=== PATIENT | female | born 1960 | race Caucasian/White ===

== ENCOUNTER 2024-01-18 18:27 | Emergency (ER) | payer MEDICARE, OTHER, SELFPAY ==
[2024-01-18 18:29] VITALS: BP 175/92
[2024-01-18 18:48] LABS: % Basophils 0.6 % (0-2); % Eosinophils 0.8 % (0-6); % Immature Granulocytes 0.3 % (0-0.5); % Lymphocytes 38.2 % (20.5-51.1); % Monocytes 10.3 % (1.7-9.3); % Neutrophils 49.8 % (42.2-75.2); Absolute Basophils 0.1 10^3/uL (0-0.2); Absolute Eosinophils 0.1 10^3/uL (0-0.7); Absolute Monocytes 0.8 10^3/uL (0.1-0.6); Absolute Neutrophils 3.9 10^3/uL (1.4-6.5); Hematocrit 39.9 % (37.0-47.0); Hemoglobin 13.8 g/dL (12.0-16.0); Mean Corp Hgb Conc. 34.6 g/dL (33.0-37.0); Mean Corpuscular Hgb 30.9 pg (27.0-31.0); Mean Corpuscular Volume 89.5 fL (81.0-99.0); Mean Platelet Volume 10.1 fL (7.4-10.4); Nucleated Red Blood Cells % 0 %; Platelet Count 269 10^3/uL (130-400); Red Blood Cell Count 4.46 10^6/uL (4.20-5.40); Red Cell Dist. Width 12.7 % (11.5-14.5); White Blood Cell Count 7.9 10^3/uL (4.8-10.8)
[2024-01-18 19:06] LABS: ALT (SGPT) 23 U/L (0-35); AST (SGOT) 24 U/L (14-36); Albumin 4.6 g/dl (3.5-5.0); Alkaline Phosphatase 98 U/L (38-126); Blood Urea Nitrogen 20 mg/dl (7-17); Calcium 9.7 mg/dl (8.4-10.2); Carbon Dioxide 25 mmol/L (22-30); Chloride 99 mmol/L (98-107); Glucose 108 mg/dl (70-99); Potassium 4.1 mmol/L (3.5-5.1); Sodium 137 mmol/L (135-145); Total Bilirubin 0.9 mg/dl (0.2-1.3); Total Protein 7.4 g/dl (6.3-8.2); eGFR > 60.00
[2024-01-18 19:09] LABS: Troponin I < 0.012 ng/ml
[2024-01-18 20:44] VITALS: BP 143/74
[2024-01-18 21:59] VITALS: BP 146/75
[2024-01-18 22:00] VITALS: BP 138/53
--- NOTE | 2024-01-18 22:28 | ED.GENMED ---
History of Present Illness
General
Chief Complaint: Chest Pain
Source: patient
Exam Limitations: none
Time Seen by Provider: 01/18/24 21:40
History of Present Illness
History of Present Illness:
This is a 63 year old female that comes in with c/o chest pain. States that she has chest pain yesterday. Then today she had chest pain again that is on and off. States that her right arm felt like it was falling asleep. States that she went to the
PCP on for a routine check up. States that she is to have a stress test and she has this scheduled for January 29. States that she got worried about this as she just started to really try and walk. States that she is walking about 2-[place] States that she does get upper chest tightness and SOB and she has to sit and rest. States that she tried to walk 5 block and she got the tightness and the SOB. Denies any fever, chills, chest pain at this time, SOB now, abd
pain, nausea, vomiting, diarrhea, headache dizziness, urinary burning.
Past History
Past History
ED Past Medical History: HTN and Other (Hemorrhoids)
ED Past Surgical History: and Other (Cataract)
Social History
Tobacco: Former smoker
Alcohol: Occasional
Personal:
Living: alone
Employment: Retired
Review of Systems
Review of Systems
All Other Systems: ROS reviewed and negative except as documented in HPI and ROS
Constitutional: Reports no symptoms; Denies fever or chills
EENT: Reports no symptoms
Respiratory: Reports trouble breathing; Denies cough
Cardiac: Reports chest pain
ABD/GI: Reports no symptoms; Denies abdominal pain, nausea, vomiting or diarrhea
: Reports no symptoms; Denies dysuria, frequency or urgency
Musculoskeletal: Reports no symptoms
Skin: Reports no symptoms
Neurological: Reports no symptoms; Denies dizzy or headache
Psychiatric: Reports no symptoms
Phy Exam
General Physical Exam
General Presentation: well appearing and no apparent distress
General age: appears stated age
General Skin: warm and dry
General Habitus: obese
General Mental: alert
General Hydration: appears well hydrated
ENT Exam
ENT Exam: TM's normal, pharynx normal and neck supple
Eye Exam
Eye Exam: EOMI
Cardiovascular Exam
Cardiovascular Exam: regular rate/rhythm, no edema and normal peripheral pulses
Pulmonary Exam
Pulmonary Exam: lungs clear, no respiratory distress, no rales, chest non tender, no crackles, no rhonchi, no wheezing and no cough
Gastrointestinal Exam
Gastrointestinal Exam: normal bowel sounds, non tender, soft, no organomegaly, no pulsatile mass and non distended
Musculoskeletal Exam
Musculoskeletal Exam: full ROM and no edema
Skin Exam
Skin Exam: normal color, warm/dry, no rash and no petechia
Psychiatric Exam
Psychiatric Exam: normal mood/affect
Scores
Heart Score for Chest Pain Patients
STEMI patient?: No
History: Slightly or Non-Suspicious
ECG: Normal
Age: >/= 65 years
Risk Factors: 1 or 2 Risk Factors
Troponin: </= Normal Limit
Heart Score for Chest Pain Patients: 3
Heart Score Risk: 2.5% MACE over next 6 weeks
Course
Orders/Labs/Results
Orders:
Orders
01/18/24 18:33
Electrocardiogram (*1) Urgent
Reason for Study: Chest Pain
EKG- Treatment ONCE
01/18/24 18:35
Complete Blood Count/With Diff Urgent
Comprehensive Metabolic Panel Urgent
Troponin I Urgent
01/18/24 22:27
Electrocardiogram (*1) Urgent
Reason for Study: Chest Pain
Other Reason for Exam: Repeat with Troponin
EKG- Treatment ONCE
CR Chest - 2 Views Urgent
Comment:
Reason For Exam: Chest pain
01/18/24 23:16
Troponin I Urgent
Abnormal Lab Results
01/18/24
18:35
Absolute Monos (auto) 0.8 H 10^3/uL
(0.1-0.6)
Monocytes % 10.3 H %
(1.7-9.3)
BUN 20 H mg/dl
(7-17)
Glucose 108 H mg/dl
(70-99)
01/18/24 18:35
01/18/24 18:35
Dehydration. Glucose nonfasting. Troponin <0.012
Second Troponin <0.012
Vital Signs
Initial and Last Documented VS:
Initial Vital Signs
Temp Pulse Resp BP Pulse Ox
98 F 101 20 175/92 98
01/18/24 18:29 01/18/24 18:29 01/18/24 18:29 01/18/24 18:29 01/18/24 18:29
Last Documented Vital Signs
Temp Pulse Resp BP Pulse Ox
98 F 77 19 125/53 95
01/18/24 18:29 01/18/24 23:15 01/18/24 23:15 01/18/24 22:45 01/18/24 23:15
MDM/Problems Addressed
Differential Diagnosis Includes:
Coronary syndrome. Angina,
MDM/Problems Addressed:
This is a 63 year old female that comes in with c/o chest pain that is on and off. States that this started yesterday and continued to day. States that today she had tingling in the right arm and was SOB.
Will check labs. Chest X-ray.
Repeat ECG: rate 69, NSR, NOrmal axis, Normal QRS. T wave inversion, III, aVF, V1, V3, V4, V5,
Into see patient. Explained that the second troponin is normal. Patient will be place on the cardiology hot line for further evaluation. Patient to return with increased chest pain or SOB.
Chronic conditions affecting care:
NA
Acute Exacerbation and/or Progression of Chronic Illness:
NA
*Radiology
Radiology exam reviewed: preliminary read by ED provider (Chest- Negative for active diseases. )
*Pulse Oximetry
Patient hypoxic: no
*EKG
Interpreted by ED Provider?: Yes
Heart Rate: 80
Rate: normal
Rhythm: sinus
Bluejacket: normal axis
Interval: normal interval
QRS Pattern: normal QRS
Ischemia: non-specific ST changes
*Critical Care Note
Total Time (30-74mins, 75-104mins- exclusive of procedures): Not Applicable
ED Attending Note
-
Portions of this chart may have been created with voice recognition software.� Occasional wrong word or��sound alike� substitutions may have occurred due to the inherent limitations of voice recognition software.
Discharge Plan
Departure
Patient Disposition: Home (Routine Discharge)
Date of Disposition: 01/19/24
Time of Disposition: 00:06
Patient with high blood pressure during this ER visit?: Yes
Condition: Good
Covid-19: Not Applicable
Discharge Problem:
Chest pain
Instructions: Chest Pain DCA Follow Up, BLOOD PRESSURE
Prescriptions:
No Action
quinapril [Accupril] 20 MG tablet
20 mg PO DAILY@1700
Quinapril/Hydrochlorothiazide
1 tab PO DAILY
Patient Comments:
20/12.5mg
Referrals:
Gin Davidson MD [Family Provider] - Call in 1-3 days for appt
Activity Restrictions/Additional Instructions:
As discussed, your blood work shows slight Dehydration. Your chest x-ray is negative for any acute disease. You have been place on the Cardiology hot line. This means that you will be called the next business day for a follow up appointment with the
Home Sales Consultant. IF YOU HAVE INCREASED OR CHANGING CHEST PAIN, SHORTNESS OF BREATH, OR YOU HAVE ANY OTHER CONCERNS PLEASE RETURN TO THE EMERGENCY ROOM.
Interventions
Interventions:
*Risk Screen - Suicide Last Done: 01/18/24 22:38
*General Assessment Last Done: 01/18/24 22:38
*Neglect/Abuse Screening Last Done: 01/18/24 22:38
ED- Fall Risk Assessment Last Done: 01/18/24 22:38
*ED COVID-19 Vaccine History Last Done: 01/18/24 22:38
ED- Cardiac Assessment Last Done: 01/18/24 22:38
Discharge Date and Time
Print Language: OCCITAN
[2024-01-18 22:38] VITALS: BMI 40.8
[2024-01-18 22:45] VITALS: BP 125/53
[2024-01-18 23:30] VITALS: BP 119/51
[2024-01-18 23:51] LABS: Troponin I < 0.012 ng/ml
== END 2024-01-19 00:46 | disposition home or self-care (01) ==
LOC: EMR 18:27
PROVIDERS: Clinical Nurse Specialist Family Health; Student in an Organized Health Care Education/Training Program; EMERGENCY PHYSICIAN Emergency Medicine; FAMILY PHYSICIAN Family Medicine
DX: R07.89 Other chest pain (principal); I10 Essential (primary) hypertension; Z87.891 Personal history of nicotine dependence
CPT/HCPCS: 99285; 71046; 80053; 84484; 85025; 93005

== ENCOUNTER → 2024-01-30 13:00 | Outpatient (REF) | payer MEDICARE, OTHER, SELFPAY | LOC: HWWDC 13:00 | PROVIDERS: ATTENDING PHYSICIAN Physician Assistant | DX: Z12.39 Encounter for other screening for malignant neoplasm of breast (principal) | CPT/HCPCS: 77063; 77067 ==

== ENCOUNTER → 2024-02-01 08:16 | Outpatient (REF) | payer MEDICARE, OTHER, SELFPAY ==
--- NOTE | 2024-02-01 09:55 | CARDSERVLU ---
Echocardiogram with Lumason completed after protocol screening completed. Allergies verified.
Patent IV site: _Right median antecubital 22 G PC site clear____
IV site flushed with 0.9% NaCl pre and post administration.
Diluted bolus method utilized to enhance visualization of ventricular colin.
Total volume given: __5__ mL
Patient tolerated all procedures well without complications.
Heplock D/c ed at 0919, site clear,no redness, no edema. Pressure held, no bleeding, 2x2 applied and taped. Pt offers no complaints.
== END ==
LOC: RCS 08:16
PROVIDERS: ATTENDING PHYSICIAN Physician Assistant
DX: R07.9 Chest pain, unspecified (principal)
CPT/HCPCS: 93017; 93350

== ENCOUNTER → 2024-02-06 10:12 | Outpatient (REF) | payer MEDICARE, OTHER, SELFPAY | LOC: RCS 10:12 | PROVIDERS: ATTENDING PHYSICIAN Internal Medicine Cardiovascular Disease; FAMILY PHYSICIAN Family Medicine | DX: I10 Essential (primary) hypertension (principal) | CPT/HCPCS: 93306 ==

== ENCOUNTER 2024-02-07 06:31 | Day surgery (SDC) | payer MEDICARE, OTHER, SELFPAY ==
[2024-02-07] VITALS (23 sets, daily range): BP systolic 81–142; BP diastolic 43–83; BMI 42.8
[2024-02-07] MEDS: NSS 293 ML IV (07:30)
[2024-02-07] MEDS: NSS 1000 IV (09:59)
[2024-02-07 10:18] LABS: ACT-LR - POC 321 Seconds (116-155)
[2024-02-07 10:18] LABS: ACT-LR - POC 252 Seconds (116-155)
--- NOTE | 2024-02-07 10:22 | ITS.CL.CATH ---
[employer] - Catheterization
Cardiac Catheterization
Procedure Report:
LEFT HEART CATHETERIZATION AND CORONARY INTERVENTION
Date of Procedure: February 07, 2024
Referring: Raymundo Griggs
PROCEDURES:
1. Left heart catheterization, coronary angiogram.
2. Ultrasound-guided access.
3. Functional physiologic testing with IFR of ostial RCA.
4. Successful percutaneous coronary artery intervention of eccentric, calcified 80% ostial RCA stenosis with one 3.5 x 15 mm Medtronic Constantin frontier drug-eluting stent, postdilated using a 3.75 x 15 mm NC balloon at 18 tyler distally and 20 tyler
proximally with an excellent angiographic result
INDICATION: Ana is a 63-year-old female with past medical history of hypertension, hyperlipidemia, prediabetes who has been experiencing progressive dyspnea and intermittent episodes of chest discomfort status post a stress test which was
abnormal for which she is now being referred for a left heart catheterization to rule out obstructive CAD.
ACCESS: Right radial artery, 6 Filipino sheath, under ultrasound guidance
HEMODYNAMICS : (mmHg)
AO (s/d) : 116/58
LV (s/d) : 125/3
LVEDP : 12
CORONARY FINDINGS
DOMINANCE: Right
LEFT MAIN: The left main artery is a large-caliber vessel which gives rise to the left anterior descending artery and the left circumflex artery. There is minimal luminal irregularities.
LEFT ANTERIOR DESCENDING: The left anterior descending artery is a medium to large caliber vessel which gives rise to multiple small caliber diagonal branches as it courses through the anterior interventricular groove and wraps around the apex.
There is moderate degree of tortuosity. There is minimal luminal irregularities.
CIRCUMFLEX: The left circumflex artery is a medium caliber vessel with 1 major obtuse marginal branch with moderate degree of tortuosity. There is minimal luminal irregularities.
RIGHT CORONARY ARTERY: The right coronary artery is a large-caliber, dominant vessel which gives rise to the right posterior descending artery and the right posterolateral system. There is significant calcium at the ostium of the vessel with an
eccentric 70% stenosis with new ventricularization or pressure dampening upon engagement with a 5 Filipino diagnostic catheter. Therefore, we decided to proceed with functional physiologic testing with IFR.
HEMODYNAMIC ASSESSMENT OF THE OSTIAL RCA WITH A VOLCANO OMNI WIRE: The origin of the RCA was cannulated with a 6 Fr JR4 guide catheter. With a [address] and selective agement we did notice some ventricularization making a suspicious
that the lesion is likely abnormal as we initially thought. Intravenous heparin was administered and the ACT was followed during the procedure. Two hundred micrograms of intracoronary nitroglycerin was given through the guide catheter. A Raphine
Omni wire was advanced to the guide catheter tip and normalized just outside guide catheter in the aorta with the guide disengaged. The Omni wire was then carefully manipulated across the stenosis in the ostial RCA with the iFR grossly below the
ischemic threshold serially measuring 0.43. Decision was made to proceed with percutaneous intervention.
CORONARY INTERVENTION: Once we confirmed that the ostial RCA stenosis was indeed grossly IFR positive, we proceeded with percutaneous intervention. Additional heparin was given to maintain a therapeutic ACT. Over the iFR wire we predilated the
lesion using a 3.0 x 12 mm semicompliant balloon with multiple inflations achieving good expansion. We subsequently stented the lesion with a 3.5 x 15 mm Medtronic Constantin frontier drug-eluting stent and postdilated the stent with a 3.75 x 15 mm NC
balloon at 18 tyler distally and 20 tyler proximally with an excellent angiographic result and ALBERTA-3 flow. Patient tolerated the procedure well with no acute complications. She was loaded with 600 mg of Plavix at the end of the case.
SEDATION: 62 minutes of procedural sedation was utilized. An independent senior medical billing specialist was present to assist with and help manage the patient's level of consciousness and physiologic status.
RADIATION SUMMARY: Fluoro Time (min): 13.6, Dose (mGy): 649.83, DAP (Gy.cm2) : 39.4
Closure Device: Vascular band over right radial artery, 12 cc of air.
CONCLUSIONS
1. Successful percutaneous coronary artery intervention of eccentric, calcified 80% ostial RCA stenosis with one 3.5 x 15 mm Medtronic [place] frontier drug-eluting stent, postdilated using a 3.75 x 15 mm NC balloon at 18 tyler distally and 20 tyler
proximally with an excellent angiographic result.
2. Moderately tortuous left-sided coronary arteries with no obstructive coronary artery disease.
3. Normal LVEDP.
RECOMMENDATIONS
1. Dual antiplatelet therapy with daily baby aspirin and Plavix 25 mg along with high intensity statin and beta-vonda as tolerated.
2. Wean radial band per protocol.
3. Aggressive management of cardiovascular risk factors.
4. Referral for outpatient cardiac rehab.
Copy to: Raymundo Griggs
Nadine Vicente MD, FACC, [facility]
--- NOTE | 2024-02-07 11:52 | PTCARENOTE ---
Therapist from Cardiac Rehab into see Patient at 1155
--- NOTE | 2024-02-07 14:05 | W.PN.UPDATE ---
Update Note
Progress Note Update
Pt seen post RCA PCI. Right radial cath site without ht/bleeding. OOB ambulating. Post EKG NSR 70s, no acute changes. Pt understands importance of uninterrupted DAPT w/asa, plavix. Will increase metoprolol to 25mg/daily. Cardiac rehab consulted.
Followup at [facility] as scheduled. Home today if cath site/tele remain stable.
== END 2024-02-07 14:00 | disposition home or self-care (01) ==
LOC: CATH 06:31
PROVIDERS: ATTENDING PHYSICIAN Internal Medicine Interventional Cardiology; FAMILY PHYSICIAN Family Medicine; OTHER PHYSICIAN Internal Medicine Cardiovascular Disease
DX: I25.10 Atherosclerotic heart disease of native coronary artery without angina pectoris (principal); I25.84 Coronary atherosclerosis due to calcified coronary lesion; Z79.02 Long term (current) use of antithrombotics/antiplatelets; I10 Essential (primary) hypertension; E78.5 Hyperlipidemia, unspecified; R73.03 Prediabetes
CPT/HCPCS: 99152; 99153; 93799; 85347; 93005; 93458; C1725; C1769; C1874; C1894; C9600; Q9967

== ENCOUNTER 2024-03-22 10:57 | Outpatient (RCR) | payer MEDICARE, OTHER, SELFPAY | END 2024-03-22 23:59 | disposition home or self-care (01) | LOC: CRHB 10:57 | PROVIDERS: ATTENDING PHYSICIAN Internal Medicine Cardiovascular Disease | DX: I25.10 Atherosclerotic heart disease of native coronary artery without angina pectoris (principal); Z95.5 Presence of coronary angioplasty implant and graft | CPT/HCPCS: G0422; G0423 ==

== ENCOUNTER 2024-04-19 11:07 | Outpatient (RCR) | payer MEDICARE, OTHER, SELFPAY | END 2024-04-19 23:59 | disposition home or self-care (01) | LOC: CRHB 11:07 | PROVIDERS: ATTENDING PHYSICIAN Internal Medicine Cardiovascular Disease; FAMILY PHYSICIAN Family Medicine | DX: I25.10 Atherosclerotic heart disease of native coronary artery without angina pectoris (principal); Z95.5 Presence of coronary angioplasty implant and graft | CPT/HCPCS: G0422; G0423 ==

== ENCOUNTER 2024-05-24 11:30 | Outpatient (RCR) | payer MEDICARE, OTHER, SELFPAY | END 2024-05-24 23:59 | disposition home or self-care (01) | LOC: CRHB 11:30 | PROVIDERS: ATTENDING PHYSICIAN Internal Medicine Cardiovascular Disease; FAMILY PHYSICIAN Family Medicine | DX: I25.10 Atherosclerotic heart disease of native coronary artery without angina pectoris (principal); Z95.5 Presence of coronary angioplasty implant and graft | CPT/HCPCS: G0422; G0423 ==

== ENCOUNTER 2024-06-03 10:00 | Outpatient (RCR) | payer MEDICARE, OTHER, SELFPAY | END 2024-06-03 12:04 | disposition home or self-care (01) | LOC: CRHB 10:00 | PROVIDERS: ATTENDING PHYSICIAN Internal Medicine Cardiovascular Disease; FAMILY PHYSICIAN Family Medicine | DX: I25.10 Atherosclerotic heart disease of native coronary artery without angina pectoris (principal); Z95.5 Presence of coronary angioplasty implant and graft | CPT/HCPCS: G0422; G0423 ==